=== PATIENT | male | born 1935 | race Caucasian/White ===

== ENCOUNTER 2017-08-27 21:40 | Observation (INO) | payer MEDICARE, OTHER ==
[~2017-08-27] VITALS: Ht 162.6 cm; Wt 58.2 kg
--- NOTE | 2017-08-27 22:04 | NUR ---
XRAY AT BEDSIDE
[2017-08-27 22:22] LABS: HEMATOCRIT 38.2 % (39.0-50.0); HEMOGLOBIN 12.3 g/dl (14.0-18.0); IMMATURE GRANULOCYTES 1.7 % (0.0-1.0); MEAN CELL VOLUME 90.3 fL CALC (80.0-100.0); MEAN CORPUSCULAR HGB 29.1 pG CALC (26.0-32.0); MEAN CORPUSCULAR HGB CONC 32.2 g/L CALC (32.0-36.0); NEUT# 4.94 thou/uL (1.82-7.42); RED BLOOD COUNT 4.23 mill/uL (4.70-6.10)
[2017-08-27 22:34] LABS: ALBUMIN 4.1 g/dL (3.2-5.0); BILIRUBIN, TOTAL 0.4 mg/dL (0.0-1.4); CREATININE 2.7 mg/dL (0.7-1.3); POTASSIUM 3.9 mmol/l (3.5-5.1); TOTAL PROTEIN 7.6 g/dL (6.3-8.2)
--- NOTE | 2017-08-27 22:36 | NUR ---
FAMILY HAS ARRIVED. AT BEDSIDE TO SPEAK WITH FAMILY
--- NOTE | 2017-08-27 22:48 | NUR ---
SPOKE WITH DAUGHTER WITH WHOM HE LIVES WITH ( HE IS VISITING WITH ANOTHER DAUGHTER THIS WEEK) SHE DOESN'T KNOW WHAT MEDICATIONS HE TAKES AT HOME SHE SENT THEM WITH HIM TO VISIT.
--- NOTE | 2017-08-27 22:50 | NUR ---
PER FAMILY PT ALSO HAS A HX OF HTN. 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
[2017-08-28] VITALS (8 sets, daily range): BP systolic 98–145; BP diastolic 47–68
--- NOTE | 2017-08-28 00:06 | NUR ---
DAUGHTER KANE WENT HOME. ([phone])
--- NOTE | 2017-08-28 00:06 | NUR ---
PER FAMILY, PT HAS BILAT CAROTID BLOCKAGES THAT HE HAS NO DESIRE TO HAVE FIXED. THE FAMILY DOES NOT KNOW NOR DO THEY HAVE THE PT'S LIST OF MEDICATIONS.
--- NOTE | 2017-08-28 00:25 | NUR ---
PT UNABLE TO VOIID. MINI CATH COMPLETED WITH 100 CC URINE DRAINED. SENT TO LAB
[2017-08-28 00:51] LABS: URINE BILIRUBIN - DIPSTICK NEGATIVE (NEGATIVE); URINE BLOOD DIPSTICK TRACE-INTACT (NEGATIVE); URINE COLOR YELLOW; URINE GLUCOSE - DIPSTICK NEGATIVE (NEGATIVE); URINE KETONE NEGATIVE (NEGATIVE); URINE NITRITE - DIPSTICK NEGATIVE (Negative); URINE PROTEIN - DIPSTICK TRACE mg/dL (NEG-TRACE); URINE UROBILINOGEN - DIPSTICK 0.2 E.U./dL (0.2)
[2017-08-28 00:55] LABS: URINE CLARITY CLOUDY; URINE LEUK ESTERASE SMALL (NEGATIVE)
[2017-08-28 00:59] LABS: BARBITURATES NEGATIVE (NEGATIVE); COCAINE NEGATIVE (NEGATIVE); METHADONE NEGATIVE (NEGATIVE); OXCYCODONE NEGATIVE (NEGATIVE); TETRAHYDROCANNABIONOL NEGATIVE (NEGATIVE); TRICYLIC ANTIDEPRESSANTS NEGATIVE (NEGATIVE)
[2017-08-28 01:10] LABS: URINE RBC 0-2 RBC/hpf (0-5); URINE SQUAMOUS EPITHELIAL CELL FEW EPI/hpf (0-FEW)
[2017-08-28 01:11] LABS: URINE AMORPH SEDIMENT MODERATE hpf (NONE-FER); URINE BACTERIA FEW hpf
--- NOTE | 2017-08-28 02:25 | NUR ---
RETURNED FROM CT
--- NOTE | 2017-08-28 02:52 | NUR ---
PT WATCHING TV. NAD. LAB CALLED FOR A RE-COLLECT OF LACTIC
--- NOTE | 2017-08-28 02:58 | NUR ---
REPEAT LACTIC OBTAINED. RT AT BEDSIDE TO GET ABG
--- NOTE | 2017-08-28 04:00 | NUR ---
PT RESTING. NO C/O. INCONT OF URINE IN PULL-UP. CHANGED. NO CHANGE IN NEURO STATUS. HAS SOME EXPRESSIVE APHASIA
--- NOTE | 2017-08-28 05:25 | NUR ---
REPORT TO BROCK SON, ICU.
--- NOTE | 2017-08-28 05:30 | NUR ---
TO ICU WITH MONITOR. NO C/O. WITHOUT INCIDENT
--- NOTE | 2017-08-28 05:40 | NUR ---
RECEIVED FROM ER VIA STRETCHER ACCOMPANIED BY NURSE, TRANSFERRED FROM STRETCHER TO BED WITH ASSISTANCE X3. PT A/O TO SELF, WITH ESPRESSIVE APHASIA. ABLE TO ANSWEAR QUESTIONS WITH ONE WORD. DENIES CHEST PAIN OR DIZZINESS. EMS HEPLOCK TO . SB 50'S ON HEART MONITOR. ORIENTED TO BED CONTROLS AND CALL LIGHT.
[2017-08-28 06:41] LABS: CREATININE 2.4 mg/dL (0.7-1.3); POTASSIUM 3.8 mmol/l (3.5-5.1)
--- NOTE | 2017-08-28 09:00 | NUR ---
PT SEEN BY DR LECHUGA THIS AM, BASELINE SLIGHT DEMENTIA AND DYSPHASIA. PT ABLE TO ANSWER SOME QUESTIONS YES OR NO. PT STATES THAT HE FEELS NORMAL, NO EVIDENCE OF DISTRESS. LUNGS WITH EXPIRATORY WHEEZE, RA.
--- NOTE | 2017-08-28 13:30 | NUR ---
PT CONTINUES TO SLEEP MOST OF THE TIME IN BED. HR LOW 40s DURING REST. NO COMPLAINTS, NO EVIDENCE OF DISTRESS NOTED.
--- NOTE | 2017-08-28 15:10 | NUR ---
REPORT PROVIDED TO LOYD PT TRANSFERRED TO ROOM 261 AT THIS TIME. PT LEAVES ICU IN STABLE CONDITION, NO COMPLAINTS.
--- NOTE | 2017-08-28 15:15 | NUR ---
PT RECIEVED FROM ICU VIS WC ACCOMPANIED BY STAFF. PT UP TO SCALE WITH STANDBY ASSISTANCE. PT ORIENTED TO CALL LIGHT AND ROOM. VSS. WILL CONTINUE TO MONITOR. CALL LIGHT IN REACH.
--- NOTE | 2017-08-28 20:00 | NUR ---
BEDSIDE REPORT RECEIVED FROM LELO HARP. PT RESTING IN BED SEMI FOWLERS; ALERT AND ORIENTED TO PERSON ONLY. DENIES PAIN CURRENTLY. RESPIRATIONS EVEN AND UNLABORED ON ROOM AIR. BED ALARM IN PLACE; HAS SOUNDED ONCE SO FAR THIS SHIFT; PT GOT AGITATED WHEN ENCOURAGED TO GET OOB ON THE SIDE CLOSER TO THE BATHROOM AND STATES, "SON OF A BITCH IM GOING TO GET OUT ON THIS SIDE OF THE BED!" PLAN OF CARE DISCUSSED. PT ENCOURAGED TO VERBALIZED CONCERNS. STATES UNDERSTANDING. SAFETY MEASURES IN PLACE. CALL LIGHT WITHIN REACH.
--- NOTE | 2017-08-29 | NUR ---
PT ASLEEP AT THIS TIME WITH NO SIGNS OF DISTRESS. RESPIRATIONS EVEN AND UNLABORED ON ROOM AIR. IV SITE APPEARS HEALTHY AND FLUSHES. AMBULATED TO BATHROOM WITH ONE PERSON ASSIST. PT DOES NOT USE CALL LIGHT; BED ALARM SOUNDS WHEN PT ATTEMPTS TO GET UP UNASSISTED. SAFETY MEASURES IN PLACE INCLUDING BED ALARM. CALL LIGHT SYSTEM REVIEWED AND WITHIN REACH.
[2017-08-29 00:23] VITALS: BP 129/72
--- NOTE | 2017-08-29 04:46 | NUR ---
PT ASLEEP AT THIS TIME ON LEFT SIDE WITH NO SIGNS OF DISTRESS. DURING THE NIGHT PT SET OFF BED ALARM AND WAS UNABLE TO TELL US WHAT HE WANTED. DENIES NEED FOR RESTROOM, DENIES PAIN, DECLINES SNACK. REPOSITIONED INTO CHAIR FOR ABOUT 30 MINUTES AND BACK TO BED PER REQUEST. NO ACUTE CHANGES IN CONDITION THROUGHOUT THE NIGHT. SAFETY MEASURES IN PLACE. CALL LIGHT WITHIN REACH.
[2017-08-29 05:58] VITALS: BP 110/60
--- NOTE | 2017-08-29 07:10 | NUR ---
REPORT RECEIVED FROM BROCK WRIGHT;PT RESTING IN SEMI FOWLERS POSITION WATCHING TV;INTRODUCED SELF TO PT AND POC DISCUSSED;PT DENIES ANY CURRENT NEEDS;RESPIRATIONS EVEN AND UNLABORED ON RA;ENCOURAGED PT TO EXPRESS ANY NEEDS OR CONCERNS;FALL PRECAUTIONS IN PLACE WITH BED IN THE LOWEST POSITION AND BED ALARM ON FOR SAFETY;CALL LIGHT IN REACH;WILL CONTINUE TO MONITOR
[2017-08-29 07:33] LABS: CREATININE 2.3 mg/dL (0.7-1.3)
[2017-08-29 07:34] LABS: POTASSIUM 4.7 mmol/l (3.5-5.1)
[2017-08-29 08:35] LABS: CHOLESTEROL HDL RATIO 5.3 (<4.4 (CALC))
[2017-08-29 08:36] VITALS: BP 128/42
--- NOTE | 2017-08-29 08:40 | NUR ---
PT RESTING IN SEMI FOWLERS POSITION;PT ALERT TO PERSON,WILL RE-ORIENT ACCORDINGLY;VS OBTAINED AND ASSESSMENT COMPLETED;RESPIRATIONS EVEN AND UNLABORED ON RA,DIMINISHED/WHEEZE LUNG SOUNDS NOTED;ABDOMEN SOFT ON PALPATION AND ACTIVE IN ALL 4 QUADRANTS;#20G TO LEFT FOREARM FLUSHED AND PATENT,SITE APPEARS HEALTHY;TELE MONITOR IN PLACE;EXPRESSIVE APHASIA NOTED R/T HX OF STROKE;BED ALARM PLACE ON PT FOR SAFETY;SKIN INTACT;SAFETY PRECAUTIONS REINFORCED WITH BED IN THE LOWEST POSITION;ENCOURAGED TO CALL FOR ASSISTANCE IF NEEDED;CALL LIGHT IN REACH;WILL CONTINUE TO MONITOR
--- NOTE | 2017-08-29 10:10 | NUR ---
PHYSICAL THERAPY AT BEDSIDE
[2017-08-29] MEDS ORDERED: CYMBALTA60 MG PO (10:29)
[2017-08-29] MEDS ORDERED: VALSARTAN80 MG PO (10:29)
[2017-08-29] MEDS ORDERED: TENORMIN25 MG PO (10:30)
[2017-08-29] MEDS ORDERED: PLAVIX75 MG PO (10:30)
[2017-08-29] MEDS ORDERED: LOVAZA1 GM PO (10:30)
[2017-08-29] MEDS ORDERED: TAMSULOSIN0.4 MG PO (10:31)
[2017-08-29] MEDS ORDERED: OMEGA 31000 MG PO (10:31)
[2017-08-29] MEDS ORDERED: LASIX 20 MG TAB20 MG PO (10:31)
--- NOTE | 2017-08-29 11:13 | NUR ---
ALEKS (DAUGHTER) LEFT CALL BACK NUMBER [phone] FOR WHEN HE IS DISCHARGED.
[2017-08-29 11:15] VITALS: BP 121/71
--- NOTE | 2017-08-29 12:25 | NUR ---
PT RESTING IN SEMI FOWLERS POSITION EATING LUNCH;PT DENIES ANY CURRENT PAIN OR NEEDS;RESPIRATIONS EVEN AND UNLABORED ON RA;TELE MONITOR IN PLACE;ENCOURAGED PT TO CALL FOR ASSISTANCE IF NEEDED;FALL PRECAUTIONS IN PLACE WITH BED IN THE LOWEST POSITION;CALL LIGHT IN REACH;WILL CONTINUE TO MONITOR
[2017-08-29] MEDS ORDERED: MEDDOSEPAK PO (12:43)
[2017-08-29] MEDS ORDERED: ATORVASTATIN CA10 MG PO (12:45)
--- NOTE | 2017-08-29 13:33 | NUR ---
DAUGHTER (ALEKS) NOTIFIED OF PT DISCHARGE.
--- NOTE | 2017-08-29 13:40 | NUR ---
ALL DISCHARGE INFORMATION DISCUSSED WITH PT,PRESCRIPTIONS PROVIDED;IV SITE REMOVED WITH CATHETER INTACT;PT DENIES ANY ADDITONAL NEEDS;WHEELCHAIR TO BE PROVIDED FOR DISCHARGE;AWAITING TRANSPORTATION HOME
--- NOTE | 2017-08-29 13:53 | NUR ---
Discharge instructions given. Patient verbalizes understanding of same. Discharged in stable condition via Wheelchair to Home with family. All belongings sent with pt.
== END 2017-08-29 13:56 | disposition home health service (06) ==
LOC: ED 21:40 → ED-I 08-28 03:02 → ED 08-28 03:59 → ICU 08-28 04:00 → MS2 08-28 15:18
PROVIDERS: Emergency Medicine; Internal Medicine; Nurse Practitioner Family; ADMIT Internal Medicine; ATTEND Internal Medicine
DX: R55 Syncope and collapse (principal); R00.1 Bradycardia, unspecified; N17.9 Acute kidney failure, unspecified; E87.2 Acidosis; I12.9 Hypertensive chronic kidney disease with stage 1 through stage 4 chronic kidney disease, or unspecified chronic kidney disease; N18.4 Chronic kidney disease, stage 4 (severe); I69.920 Aphasia following unspecified cerebrovascular disease; E78.5 Hyperlipidemia, unspecified; E03.9 Hypothyroidism, unspecified; E86.0 Dehydration; F17.210 Nicotine dependence, cigarettes, uncomplicated; R06.2 Wheezing; Z72.89 Other problems related to lifestyle; Z79.02 Long term (current) use of antithrombotics/antiplatelets